=== PATIENT | male | born 1960 | race Two or more races ===

== ENCOUNTER 2016-12-21 07:30 | Day surgery (SDC) | payer BC ==
[~2016-12-21 07:30] MED LIST: FENTANYL 250 MCG/5 ML AMP IV PRN; IV START KIT ONE; LACTATED RINGERS 1,000 ML IV SCH; LACTATED RINGERS 1,000 ML ONE; MIDAZOLAM HCL 5 MG/5 ML VIAL IV PRN
[2016-12-21] MEDS ORDERED: MIDAZOLAM HCL 5 MG/5 ML VIAL ONE (08:10)
[2016-12-21] MEDS ORDERED: FENTANYL 250 MCG/5 ML AMP ONE (08:10)
[2016-12-21] MEDS ORDERED: MIDAZOLAM HCL 1 MG/ML 2ML VIAL ONE (08:30)
--- NOTE | 2016-12-25 09:55 | SURGPATH ---
[facility] [address] [place] [id number] Patient Name: LV CORBETT MR#: [id number] : 1960 Gender: M Specimen #: [id number] Collected: 12/21/2016 Received: 12/22/2016 Reported: 12/25/2016 Submitting Phys: HERMELINDA PENDLETON Copy To Phys: [facility] Clinical History / Pre-Operative Diagnosis: History of ulcerative colitis; rule out ileitis and colitis Specimen Source / Surgical Procedure Performed: #1-terminal ileum biopsy; #2-cecal biopsy; #3-sigmoid biopsy at 30 cm Interpretation: 1. TERMINAL ILEUM, BIOPSY: - NO PATHOLOGIC ABNORMALITY 2. CECUM, BIOPSY: - NO PATHOLOGIC ABNORMALITY 3. SIGMOID COLON, BIOPSY: - CHRONIC SEVERELY ACTIVE COLITIS WITH ULCER - NEGATIVE FOR DYSPLASIA Electronically Signed Out Andre Snow M.D. Gross Description: #1 The specimen is received in a formalin filled container labeled with the patient's name and "terminal ileum biopsy". A single aly biopsy is 0.5 cm. Totally embedded in cassette #1. #2 The specimen is received in a formalin filled container labeled with the patient's name and "cecal biopsy". Two aly biopsies are 0.4 and 0.5 cm. Totally embedded in cassette #2. #3 The specimen is received in a formalin filled container labeled with the patient's name and "sigmoid biopsy at 30 cm". Two aly biopsies are 0.5 and 0.6 cm. Totally embedded in cassette #3. Aung Lomeli Microscopic Description: 1. Sections show normal small bowel mucosa. 2. Sections show normal colonic mucosa without inflammatory or neoplastic process. 3. Sections show ulcer with granulation tissue, active inflammation and crypt distortion. Dysplasia is absent. 1: [id number] 2: 19395 3: 05250 K51.90
== END 2016-12-21 09:34 | disposition home or self-care (01) ==
LOC: SDC 07:30
PROVIDERS: ATTEND Internal Medicine Gastroenterology
PROC: 0DBB8ZX Excision of Ileum, Via Natural or Artificial Opening Endoscopic, Diagnostic (ICD-10-PCS; principal; 2016-12-21)
PROC: 0DBN8ZX Excision of Sigmoid Colon, Via Natural or Artificial Opening Endoscopic, Diagnostic (ICD-10-PCS; 2016-12-21)
PROC: 0DBH8ZX Excision of Cecum, Via Natural or Artificial Opening Endoscopic, Diagnostic (ICD-10-PCS; 2016-12-21)
DX: K51.90 Ulcerative colitis, unspecified, without complications (principal); Z79.899 Other long term (current) drug therapy
CPT/HCPCS: 45380; J3010; J2250; J7120